=== PATIENT | female | born 1980 | race Two or more races ===

== ENCOUNTER → 2025-04-22 15:59 | Outpatient (REF) | payer BC, SELFPAY ==
[2025-04-22 18:20] LABS: Free T3 3.59 pg/ml (2.77-5.27); Free T4 0.98 ng/dl (0.78-2.19)
[2025-04-22 18:35] LABS: TSH 4.13 uIU/ml (0.47-4.68)
[2025-04-24 22:42] LABS: Thyroglobulin Antibodies <1.5 IU/mL (0.0-4.0)
== END ==
LOC: RAD 15:59
PROVIDERS: ATTENDING PHYSICIAN Obstetrics & Gynecology; FAMILY PHYSICIAN Internal Medicine
DX: N92.6 Irregular menstruation, unspecified (principal); E07.9 Disorder of thyroid, unspecified
CPT/HCPCS: 36415; 76536; 76830; 76856; 84432; 84439; 84443; 84480; 84481; 86376; 86800